=== PATIENT | male | born 1965 | race Two or more races ===

== ENCOUNTER 2021-07-26 01:49 | Emergency (ER) | payer OTHER ==
[~2021-07-26] VITALS: Ht 170.2 cm; Wt 76.2 kg
[2021-07-26] MEDS ORDERED: ATORVASTATIN CA10 MG (02:23)
[2021-07-26] MEDS ORDERED: COZAAR100 MG (02:23)
[2021-07-26] MEDS ORDERED: AZOR 10-40 MG1 EACH (02:23)
[2021-07-26] MEDS ORDERED: NAPROXEN500 MG PO (05:01)
[2021-07-26] MEDS ORDERED: INTESTINEX680 M2 PO (05:01)
[2021-07-26] MEDS ORDERED: CLINDAMYCIN HC300 MG PO (05:01)
== END 2021-07-26 06:04 | disposition home or self-care (01) ==
LOC: ER 01:49
DX: S61.411A Laceration without foreign body of right hand, initial encounter (principal); X58.XXXA Exposure to other specified factors, initial encounter; Y92.89 Other specified places as the place of occurrence of the external cause

== ENCOUNTER 2023-08-08 14:04 | Emergency (ER) | payer OTHER ==
[~2023-08-08] VITALS: Ht 170.2 cm; Wt 76.2 kg
[~2023-08-08 14:04] MED LIST: ATORVASTATIN CA10 MG; AZOR 10-40 MG1 EACH; CLINDAMYCIN HC300 MG PO; COZAAR100 MG; INTESTINEX680 M2 PO; NAPROXEN500 MG PO
== END 2023-08-08 17:28 | disposition home or self-care (01) ==
LOC: ER 14:05
DX: S05.00XA Injury of conjunctiva and corneal abrasion without foreign body, unspecified eye, initial encounter (principal); I10 Essential (primary) hypertension